=== PATIENT | female | born 1995 | race Caucasian/White ===

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

== ENCOUNTER 2019-02-03 17:06 | Emergency (ER) | payer MEDICAID ==
[~2019-02-03] VITALS: Ht 157.5 cm; Wt 81.8 kg
[2019-02-03] MEDS ORDERED: LIDOCAINE 5% TRANSDERMAL PATCH TD ONE (19:45)
[2019-02-03 20:12] VITALS: BP 125/73
== END 2019-02-03 20:26 | disposition home or self-care (01) ==
LOC: EMS 17:07
DX: S29.011A Strain of muscle and tendon of front wall of thorax, initial encounter (principal); J45.909 Unspecified asthma, uncomplicated; X50.9XXA Other and unspecified overexertion or strenuous movements or postures, initial encounter; Y93.89 Activity, other specified; Y92.89 Other specified places as the place of occurrence of the external cause; Y99.8 Other external cause status

== ENCOUNTER 2024-01-27 14:56 | Emergency (ER) | payer MEDICAID ==
[~2024-01-27] VITALS: Ht 152.4 cm; Wt 86.4 kg
[2024-01-27 15:01] VITALS: TEMP 98.2
[2024-01-27] MEDS ORDERED: AMOX-457 PO (17:22)
[2024-01-27] MEDS: AMOX TR/POT CLAV 875 MG/125 MG TABLET PO ONE (17:47)
[2024-01-27] MEDS: PERTUSS(ACELL),DIPH,TET/PF 0.5 ML SYRINGE [ADULT] IM. ONE (17:48)
[2024-01-27 18:00] VITALS: BP 128/72; PULSE 68; RESP 18; O2SAT 100
[2024-01-27] MEDS: RABIES VACCINE, HUMAN DIPLOID/PF 2.5 UNITS/ML VIAL IM. ONE (18:06)
[2024-01-27] MEDS: RABIES IMMUNE GLOBULIN/PF 150 UNIT/ML 10 ML VIAL IM. ONE (18:08)
== END 2024-01-27 18:29 | disposition home or self-care (01) ==
LOC: EMS 14:56
DX: S61.051A Open bite of right thumb without damage to nail, initial encounter (principal); J45.909 Unspecified asthma, uncomplicated; Z20.3 Contact with and (suspected) exposure to rabies; Z23 Encounter for immunization; W54.0XXA Bitten by dog, initial encounter; Y93.89 Activity, other specified; Y92.89 Other specified places as the place of occurrence of the external cause; Y99.8 Other external cause status
CPT/HCPCS: 90375; 90471; 90472; 90675; 90715; 96372; 99284

== ENCOUNTER 2024-01-31 11:31 | Emergency (ER) | payer MEDICAID ==
[~2024-01-31] VITALS: Ht 152.4 cm; Wt 86.4 kg
[~2024-01-31 11:31] MED LIST: AMOX-457 PO
[2024-01-31] MEDS: RABIES VACCINE, HUMAN DIPLOID/PF 2.5 UNITS/ML VIAL IM. ONE (12:01)
[2024-01-31 12:20] VITALS: TEMP 98.2
[2024-01-31 12:33] VITALS: BP 121/73; PULSE 73; RESP 16; O2SAT 99
== END 2024-01-31 12:39 | disposition home or self-care (01) ==
LOC: EMS 11:33
DX: S61.051D Open bite of right thumb without damage to nail, subsequent encounter (principal); J45.909 Unspecified asthma, uncomplicated; Z20.3 Contact with and (suspected) exposure to rabies; Z23 Encounter for immunization; W54.0XXD Bitten by dog, subsequent encounter
CPT/HCPCS: 90471; 90675; 99281